=== PATIENT | male | born 1950 | race Caucasian/White ===

== ENCOUNTER 2017-01-02 07:44 | Observation (INO) | payer MEDICAID ==
--- NOTE | 2017-01-02 08:51 | EDM.PDOC ---
ED HPI GENERAL MEDICAL PROBLEM - General Chief Complaint: Abdominal Pain Stated Complaint: PAIN IN LEFT SIDE OF BELLY AREA Time Seen by Provider: 01/02/17 08:30 Source of Information: Reports: Patient, Family History Limitations: Reports: No Limitations - History of Present Illness INITIAL COMMENTS - FREE TEXT/NARRATIVE: 66-year-old male who has left-sided abdominal pain for the past 12 hours. He was unable to lay on his left side last night when he was trying to sleep. It seems worse when suppositional, such as partially inclined in a chair. No fevers or chills, no nausea or vomiting, had a normal bowel movement this morning. He does feel somewhat distended. He has a dental extraction later this afternoon and wants to make sure each healthy enough. Onset: Gradual (Over the last 12 hours) Location: Reports: Abdomen Severity: Moderate Worsens with: Reports: Other (Leaning back or laying on his left side) Abdomen Pain Score (Numeric/FACES): 2 - Related Data Allergies Allergy/AdvReac Type Severity Reaction Status Date / Time clarithromycin [From Biaxin] Allergy Rash Verified 01/02/17 08:03 doxycycline Allergy Rash Verified 01/02/17 08:03 levofloxacin [From Levaquin] Allergy Rash Verified 01/02/17 08:03 Home Meds: Home Meds Calcium Carbonate/Vitamin D3 [Calcium 600 + D3 Softgel] 1 each PO DAILY [History] Cetirizine HCl 10 mg PO DAILY 06/19/16 [History] Fenofibrate Nanocrystallized [Tricor] 145 mg PO DAILY 06/19/16 [History] Fish Oil/[place]-3 Fatty Acids [Fish Oil] 2 each PO BID 06/19/16 [History] Folic Acid 0.8 mg PO DAILY 06/19/16 [History] Guaifenesin/Pseudoephedrne HCl [Mucinex D ER Tablet] 1 each PO DAILY 06/19/16 [ History] Multivitamin with Minerals [Multiple Vitamin] 1 tab PO DAILY 06/19/16 [History] Omeprazole 40 mg PO DAILY 06/19/16 [History] Oxymetazoline [Afrin Original 0.05% Nasal [place]] 1 applic RAIZA DAILY PRN [History] Triamcinolone Acetonide [Nasacort] 2 ampule NS DAILY 06/19/16 [History] Warfarin [Coumadin] 6 mg PO DAILY 06/19/16 [History] Past Medical History HEENT History: Reports: Cataract, Hard of Hearing, Impaired Vision, Other (See Below) Other HEENT History: Radiation therapy on sinus (forehead) Cardiovascular History: Reports: Heart Murmur, High Cholesterol Respiratory History: Reports: Sleep Apnea Gastrointestinal History: Reports: GERD, Hemorrhoids Musculoskeletal History: Reports: Fracture, Osteoarthritis Psychiatric History: Reports: Depression, Mood Swings Endocrine/Metabolic History: Reports: Obesity/BMI 30+ Oncologic (Cancer) History: Reports: Basal Cell Carcinoma Dermatologic History: Reports: Eczema - Infectious Disease History Infectious Disease History: Reports: Chicken Pox - Past Surgical History HEENT Surgical History: Reports: Cataract Surgery, Naso-Sinus Surgery, Tonsillectomy Cardiovascular Surgical History: Reports: Valve Replacement GI Surgical History: Reports: Colonoscopy, EGD, Hernia, Inguinal Endocrine Surgical History: Reports: None Musculoskeletal Surgical History: Reports: Carpal Tunnel, Shoulder Surgery, Other (See Below) Dermatological Surgical History: Reports: Skin Biopsy Social & Family History - Family History Cardiac: Reports: [place] Oncologic: Reports: Skin - Tobacco Use Smoking Status *Q: Former Smoker Years of Tobacco use: 8 Packs/Tins Daily: 1 Used Tobacco, but Quit: Yes Month Tobacco Last Used: 1986 Tobacco Use Comment: quit jun 06 1987 Second Hand Smoke Exposure: No - Caffeine Use Caffeine Use: Reports: Coffee Caffeine Use Comment: 5 cups a day - Alcohol Use Days Per Week of Alcohol Use: 2 Number of Drinks Per Day: 1 Total Drinks Per Week: 2 - Recreational Drug Use Recreational Drug Use: No ED ROS GENERAL - Review of Systems Review Of Systems: See Below Constitutional: Denies: Fever, Chills HEENT: Reports: Other (Recent dental abscess, scheduled for dental extraction later today) Respiratory: Denies: Shortness of Breath Cardiovascular: Denies: Chest Pain GI/Abdominal: Reports: Abdominal Pain, Distension (Feels his abdomen is somewhat bloated). Denies: Nausea, Vomiting Skin: Reports: No Symptoms Neurological: Reports: Other (Has been getting lightheaded with standing over the past several weeks) Psychiatric: Reports: No Symptoms ED EXAM, GI/ABD - Physical Exam Exam: See Below Exam Limited By: No Limitations General Appearance: Alert, No Apparent Distress Head: Atraumatic Neck: Normal Inspection Respiratory/Chest: No Respiratory Distress Cardiovascular: Regular Rate, Rhythm GI/Abdominal: Soft, Tenderness (Does react was some tenderness to palpation over the left lateral abdomen and left lower quadrant, no guarding or rebound) Neurological: Alert, Oriented Psychiatric: Normal Affect, Normal Mood Skin Exam: Warm, Dry Course - Vital Signs Last Recorded V/S: Last Vital Signs Temp 99.7 F 01/02/17 14:10 Pulse 65 01/02/17 14:10 Resp 16 01/02/17 14:10 BP 119/81 01/02/17 14:10 Pulse Ox 98 01/02/17 14:10 - Orders/Labs/Meds Orders: Active Orders 24 hr Category Date Time Status Lactated Ringers [Ringers, Lactated] 1,000 ml Med 01/02/17 10:00 Active IV ASDIRECTED Medication Orders Lactated Ringer's (Ringers, Lactated) 1,000 mls @ 500 mls/hr IV ASDIRECTED [facility]GU[facility] Last Admin: 01/02/17 10:21 Dose: 500 mls/hr Dextrose/Sodium Chloride (Dextrose 5%-Normal Saline) 1,000 mls @ 200 mls/hr IV ASDIRECTED [facility] Last Admin: 01/02/17 12:56 Dose: 200 mls/hr Warfarin Sodium (Coumadin) 6 mg PO DAILY@1300 [facility] Labs: Laboratory Tests 01/02/17 01/02/17 01/02/17 Range/Units 08:53 08:53 08:53 WBC 6.3 (4.5-11.0) K/uL RBC 5.19 (4.30-5.90) M/uL Hgb 15.0 (12.0-15.0) g/dL Hct 45.3 (40.0-54.0) % MCV 87 (80-98) fL MCH 29 (27-31) pg MCHC 33 (32-36) % Plt Count 233 (150-400) K/uL Neut % (Auto) 74 H (36-66) % Lymph % (Auto) 14 L (24-44) % [place] % (Auto) 12 H (2-6) % Eos % (Auto) 1 L (2-4) % Baso % (Auto) 0 (0-1) % PT 25.2 H (9.5-12.0) sec INR 2.32 H (0.80-1.20) Sodium 142 (140-148) mmol/L Potassium 4.3 (3.6-5.2) mmol/L Chloride 107 (100-108) mmol/L Carbon Dioxide 27 (21-32) mmol/L Anion Gap 8.2 (5.0-14.0) mmol/L BUN 17 (7-18) mg/dL Creatinine 1.1 (0.8-1.3) mg/dL Est Cr Clr Drug Dosing 83.29 mL/min Estimated GFR (MDRD) > 60 (>60) Glucose 115 H (74-106) mg/dL Calcium 8.9 (8.5-10.1) mg/dL Total Bilirubin 0.7 (0.2-1.0) mg/dL AST 38 H (15-37) U/L ALT 52 (12-78) U/L Alkaline Phosphatase 40 L (46-116) U/L Total Protein 7.3 (6.4-8.2) g/dL Albumin 4.0 (3.4-5.0) g/dL Globulin 3.3 (2.3-3.5) g/dL Albumin/Globulin Ratio 1.2 (1.2-2.2) Lipase 2148 H (73-393) U/L Meds: Medications Generic Name Dose Route Start Last Admin Trade Name Freq PRN Reason Stop Dose Admin Lactated Ringer's 1,000 mls @ 500 mls/hr 01/02/17 10:00 01/02/17 10:21 Ringers, Lactated IV 500 mls/hr ASDIRECTED NGUYEN Administration Dextrose/Sodium Chloride 1,000 mls @ 200 mls/hr 01/02/17 13:00 01/02/17 12:56 Dextrose 5%-Normal Saline IV 200 mls/hr ASDIRECTED NGUYEN Administration Warfarin Sodium 6 mg 01/03/17 13:00 Coumadin PO DAILY@1300 NGUYEN Discontinued Medications Generic Name Dose Route Start Last Admin Trade Name Freq PRN Reason Stop Dose Admin Calcium Carbonate 1 tab 01/03/17 09:00 Caltrate 600+D 1500 Mg-400 Units PO DAILY NGUYEN Cetirizine HCl 10 mg 01/03/17 09:00 Zyrtec PO DAILY NGUYEN Fluticasone Propionate 0 gm 01/03/17 09:00 Flonase NASBOTH DAILY NGUYEN Oxymetazoline HCl ml 01/02/17 12:24 Afrin Original 0.05% Nasal [place] RAIZA DAILY PRN Allergies - Re-Assessments/Exams Free Text/Narrative Re-Assessment/Exam: 01/02/17 08:50 He needs a pro time preoperatively, that was ordered along with a CBC CMP and lipase. We will have to CT his abdomen to rule out diverticulitis or partial bowel obstruction prior to his surgery. 01/02/17 09:51 Lipase returned over 1999, CT confirms pancreatitis. The rest of his labs are actually reassuring, his pro time is 2.3. An IV of lactated Ringer's was initiated at 500 mL an hour, and Dr. Hanson his primary provider was contacted and will come to admit the patient. His oral surgery will have to be postponed. Departure - Departure Time of Disposition: 13:47 Disposition: Admitted As Inpatient 68 Condition: fair Clinical Impression: Pancreatitis Qualifiers: Chronicity: acute Pancreatitis type: idiopathic Acute pancreatitis complication : no infection or necrosis Qualified Code(s): K85.00 - Idiopathic acute pancreatitis without necrosis or infection Abdominal pain Qualifiers: Abdominal location: left upper quadrant Qualified Code(s): R10.12 - Left upper quadrant pain - Discharge Information - My Orders Last 24 Hours: My Active Orders 01/02/17 10:00 Lactated Ringers [Ringers, Lactated] 1,000 ml IV ASDIRECTED - Assessment/Plan Last 24 Hours: My Active Orders 01/02/17 10:00 Lactated Ringers [Ringers, Lactated] 1,000 ml IV ASDIRECTED
--- NOTE | 2017-01-02 09:32 | CT ---
CT abdomen and pelvis. Total DLP 1219. Findings: Right lung is clear. Minimal streaky density left lung base favor atelectasis or scarring. Fatty infiltration of the liver. Gallstones. Bilateral adrenal glands within normal limits. Spleen within normal limits. Terminal ileum within normal limits. Appendix within normal limits. The pancre atic tail demonstrates mild haziness about it. Additionally there is some mild free fluid just below it. Atherosclerotic nonaneurysmal aorta. No hydronephrosis. No dilated loops of small bowel. Pars d efects at L5 vertebral body. Impression: 1. Fluid about the pancreas with mild haziness about the pancreatic tail. Findings suggestive of acu te pancreatitis. 2. Cholelithiasis.
[2017-01-02] MEDS ORDERED: Lactated Ringers 1,000 ML IV SCH (10:00)
--- NOTE | 2017-01-02 12:07 | PCM.HP ---
H&P History of Present Illness - General Date of Service: 01/02/17 Admit Problem/Dx: Admission Diagnosis/Problem Admission Diagnosis/Problem Pancreatitis Source of Information: Patient - History of Present Illness Initial Comments - Free Text/Narative: cynthia has had fatigue for 10 days and mild abd. pain. Yesterday had abd pain on the left side and became severe this AM 7/10. Pain was sharp and dull and cramping. Pain worse when bending over. No change in bowel habits and stool dark in color yesterday. Normal color this morning. He has had a tooth abscess and was to have it extracted today. He is on Coumadin because of a heart valve replacement. Location: Reports: Abdomen Improves with: Reports: Rest Abdomen Pain Score (Numeric/FACES): 2 - Related Data Allergies/Adverse Reactions: Allergies Allergy/AdvReac Type Severity Reaction Status Date / Time clarithromycin [From Biaxin] Allergy Rash Verified 01/02/17 08:03 doxycycline Allergy Rash Verified 01/02/17 08:03 levofloxacin [From Levaquin] Allergy Rash Verified 01/02/17 08:03 Home Medications: Home Meds Calcium Carbonate/Vitamin D3 [Calcium 600 + D3 Softgel] 1 each PO DAILY [History] Cetirizine HCl 10 mg PO DAILY 06/19/16 [History] Fenofibrate Nanocrystallized [Tricor] 145 mg PO DAILY 06/19/16 [History] Fish Oil/[place]-3 Fatty Acids [Fish Oil] 2 each PO BID 06/19/16 [History] Folic Acid 0.8 mg PO DAILY 06/19/16 [History] Guaifenesin/Pseudoephedrne HCl [Mucinex D ER Tablet] 1 each PO DAILY 06/19/16 [ History] Multivitamin with Minerals [Multiple Vitamin] 1 tab PO DAILY 06/19/16 [History] Omeprazole 40 mg PO DAILY 06/19/16 [History] Oxymetazoline [Afrin Original 0.05% Nasal [place]] 1 applic RAIZA DAILY PRN [History] Triamcinolone Acetonide [Nasacort] 2 ampule NS DAILY 06/19/16 [History] Warfarin [Coumadin] 6 mg PO DAILY 06/19/16 [History] Past Medical History HEENT History: Reports: Cataract, Hard of Hearing, Impaired Vision, Other (See Below) Other HEENT History: Radiation therapy on sinus (forehead) Cardiovascular History: Reports: Heart Murmur, High Cholesterol Respiratory History: Reports: Sleep Apnea Gastrointestinal History: Reports: GERD, Hemorrhoids Musculoskeletal History: Reports: Fracture, Osteoarthritis Psychiatric History: Reports: Depression, Mood Swings Endocrine/Metabolic History: Reports: Obesity/BMI 30+ Oncologic (Cancer) History: Reports: Basal Cell Carcinoma Dermatologic History: Reports: Eczema - Infectious Disease History Infectious Disease History: Reports: Chicken Pox - Past Surgical History HEENT Surgical History: Reports: Cataract Surgery, Naso-Sinus Surgery, Tonsillectomy Cardiovascular Surgical History: Reports: Valve Replacement GI Surgical History: Reports: Colonoscopy, EGD, Hernia, Inguinal Endocrine Surgical History: Reports: None Musculoskeletal Surgical History: Reports: Carpal Tunnel, Shoulder Surgery, Other (See Below) Dermatological Surgical History: Reports: Skin Biopsy Social & Family History - Family History Cardiac: Reports: [place] Oncologic: Reports: Skin - Tobacco Use Smoking Status *Q: Former Smoker Years of Tobacco use: 8 Packs/Tins Daily: 1 Used Tobacco, but Quit: Yes Tobacco Last Used: 1986 Tobacco Use Comment: quit jun 06 1987 Second Hand Smoke Exposure: No - Caffeine Use Caffeine Use: Reports: Coffee Caffeine Use Comment: 5 cups a day - Alcohol Use Days Per Week of Alcohol Use: 2 Number of Drinks Per Day: 1 Total Drinks Per Week: 2 - Recreational Drug Use Recreational Drug Use: No H&P Review of Systems - Review of Systems: Review Of Systems: See Below General: Reports: Weakness HEENT: Reports: No Symptoms Pulmonary: Reports: Shortness of Breath Gastrointestinal: Reports: Abdominal Pain Genitourinary: Reports: No Symptoms Musculoskeletal: Reports: No Symptoms Skin: Reports: No Symptoms Psychiatric: Reports: No Symptoms Neurological: Reports: No Symptoms Hematologic/Lymphatic: Reports: No Symptoms Immunologic: Reports: No Symptoms Exam - Exam Exam: See Below - Vital Signs Vital Signs: Last Vital Signs Temp 98.8 F 01/02/17 11:22 Pulse 67 01/02/17 10:52 Resp 18 01/02/17 11:22 BP 138/89 01/02/17 11:22 Pulse Ox 93 L 01/02/17 11:22 Weight: 268 lb 1.314 oz - Exam General: Alert, Oriented, 4 HEENT: PERRLA, Hearing Intact, Mucosa Moist & [place], Nares Patent, Normal Nasal Septum, Posterior Pharynx Clear, Conjunctiva Clear, EOMI, EACs Clear, TMs Clear Neck: Supple, Trachea Midline, 2 Lungs: Clear to Auscultation, Normal Respiratory Effort Cardiovascular: Regular Rate, Regular Rhythm Abdomen: Normal Bowel Sounds, Soft, Tenderness Back Exam: Normal Inspection, Full Range of Motion, NT Peripheral Pulses: 1+: Radial (L), Radial (R) Skin: Warm, Dry, Intact Neuro Extensive - Motor, Sensory, Reflexes: CN II-XII Intact, Normal Gait, Normal Reflexes DTR: 1+: Patella (L), Patella (R) Psychiatric: Alert, Normal Affect, Normal Mood - Patient Data Lab Results last 24 hrs: Laboratory Results - last 24 hr 01/02/17 01/02/17 01/02/17 Range/Units 08:53 08:53 08:53 WBC 6.3 (4.5-11.0) K/uL RBC 5.19 (4.30-5.90) M/uL Hgb 15.0 (12.0-15.0) g/dL Hct 45.3 (40.0-54.0) % MCV 87 (80-98) fL MCH 29 (27-31) pg MCHC 33 (32-36) % Plt Count 233 (150-400) K/uL Neut % (Auto) 74 H (36-66) % Lymph % (Auto) 14 L (24-44) % [place] % (Auto) 12 H (2-6) % Eos % (Auto) 1 L (2-4) % Baso % (Auto) 0 (0-1) % PT 25.2 H (9.5-12.0) sec INR 2.32 H (0.80-1.20) Sodium 142 (140-148) mmol/L Potassium 4.3 (3.6-5.2) mmol/L Chloride 107 (100-108) mmol/L Carbon Dioxide 27 (21-32) mmol/L Anion Gap 8.2 (5.0-14.0) mmol/L BUN 17 (7-18) mg/dL Creatinine 1.1 (0.8-1.3) mg/dL Est Cr Clr Drug Dosing 83.29 mL/min Estimated GFR (MDRD) > 60 (>60) Glucose 115 H (74-106) mg/dL Calcium 8.9 (8.5-10.1) mg/dL Total Bilirubin 0.7 (0.2-1.0) mg/dL AST 38 H (15-37) U/L ALT 52 (12-78) U/L Alkaline Phosphatase 40 L (46-116) U/L Total Protein 7.3 (6.4-8.2) g/dL Albumin 4.0 (3.4-5.0) g/dL Globulin 3.3 (2.3-3.5) g/dL Albumin/Globulin Ratio 1.2 (1.2-2.2) Lipase 2148 H (73-393) U/L Result Diagrams: 01/02/17 08:53 01/02/17 08:53 *Q Meaningful Use (ADM) - VTE *Q VTE Criteria *Q: - Stroke *Q Stroke Criteria *Q: - AMI *Q AMI Criteria *Q: Problem List Initiated/Reviewed/Updated: Yes Orders Last 24hrs: Active Orders 24 hr Category Date Time Status Patient Status Manage Transfer [TRANSFER] Routine ADT 01/02/17 11:12 Active Lactated Ringers [Ringers, Lactated] 1,000 ml Med 01/02/17 10:00 Active IV ASDIRECTED Medication Orders Lactated Ringer's (Ringers, Lactated) 1,000 mls @ 500 mls/hr IV ASDIRECTED [facility] Last Admin: 01/02/17 10:21 Dose: 500 mls/hr Assessment/Plan Comment:: Assessment/Plan: #1. Pancreatitis. Lipase is elevated 2148. CT showed Mild haziness at the pancreatic tail and also cholelithiasis. #2. Aortic and mitral value replacement. On Coumadin. will continue with 6 mg daily. Goal 2.5-3.5 #3. HLD.
[2017-01-02] MEDS ORDERED: Oxymetazoline 0.05% Nasal Spray 15 ML Bottle NAS PRN (12:24)
[2017-01-02] MEDS: Dextrose 5%-0.9% NaCl 1,000 ML IV SCH ×3 (12:56→23:19)
[2017-01-02] MEDS ORDERED: WARFARIN 3 MG PO SCH (16:00)
[2017-01-03] MEDS: Dextrose 5%-0.9% NaCl 1,000 ML IV SCH ×4 (04:26→19:38)
[2017-01-03] MEDS ORDERED: Cetirizine 10 MG Tab PO SCH (09:00)
[2017-01-03] MEDS ORDERED: Fluticasone Propionate Nasal Spray 16 GM Bottle NASBOTH SCH (09:00)
[2017-01-03] MEDS ORDERED: Calcium Carbonate/Vitamin D3 1500 MG-400 Units Tab PO SCH (09:00)
[2017-01-03] MEDS: Patient's Own Medication 1 Each PO SCH (13:56)
--- NOTE | 2017-01-03 17:22 | PCM.PN ---
- General Info Date of Service: 01/03/17 Functional Status: Reports: pain controlled - Review of Systems General: Reports: No Symptoms HEENT: Reports: no symptoms Pulmonary: Reports: no symptoms Cardiovascular: Reports: No Symptoms Gastrointestinal: Reports: No symptoms Genitourinary: Reports: no symptoms Musculoskeletal: Reports: no symptoms Skin: Reports: no symptoms Neurological: Reports: No Symptoms Psychiatric: Reports: no symptoms - Patient Data Vitals - most recent: Last Vital Signs Temp 99.3 F 01/03/17 15:17 Pulse 67 01/03/17 15:17 Resp 18 01/03/17 15:17 BP 119/80 01/03/17 15:17 Pulse Ox 98 01/03/17 15:17 Weight - most recent: 263 lb I&O - last 24 hours: Intake & Output 01/03/17 01/03/17 01/03/17 06:59 14:59 22:59 Output Total 975 Balance -975 Lab Results last 24 hrs: Laboratory Results - last 24 hr 01/02/17 01/02/17 01/02/17 Range/Units 18:00 23:13 23:45 Lipase 1499 H 899 H (73-393) U/L Urine Color Yellow Urine Appearance Clear Urine pH 8.0 (4.5-8.0) Ur Specific [place] 1.010 (1.008-1.030) Urine Protein Negative (NEGATIVE) mg/dL Urine Glucose (UA) Normal (NEGATIVE) mg/dL Urine Ketones Negative (NEGATIVE) mg/dL Urine Occult Blood Negative (NEGATIVE) Urine Nitrite Negative (NEGAITVE) Urine Bilirubin Negative (NEGATIVE) Urine Urobilinogen Normal (NORMAL) mg/dL Ur Leukocyte Esterase Negative (NEGATIVE) Urine RBC 0-5 (0-5) Urine WBC Not seen (0-5) Ur Epithelial Cells Not seen Amorphous Sediment Rare Urine Bacteria Not seen Urine Mucus Not seen Med Orders - Current: Current Medications Dextrose/Sodium Chloride (Dextrose 5%-Normal Saline) 1,000 mls @ 200 mls/hr IV ASDIRECTED [facility] Last Admin: 01/03/17 14:37 Dose: 200 mls/hr Patient Own Medication (Ptom) 0 each PO DAILY@1300 [facility] Last Admin: 01/03/17 13:56 Dose: 1 each Discontinued Medications Calcium Carbonate (Caltrate 600+D 1500 Mg-400 Units) 1 tab PO DAILY [facility] Cetirizine HCl (Zyrtec) 10 mg PO DAILY [facility] Fluticasone Propionate (Flonase) 0 gm NASBOTH DAILY [facility] Lactated Ringer's (Ringers, Lactated) 1,000 mls @ 500 mls/hr IV ASDIRECTED [facility] Last Admin: 01/02/17 10:21 Dose: 500 mls/hr Oxymetazoline HCl (Afrin Original 0.05% Nasal [place]) ml RAIZA DAILY PRN PRN Reason: Allergies Warfarin Sodium (Coumadin) 6 mg PO DAILY@1300 [facility] Last Admin: 01/02/17 16:34 Dose: 6 mg - Exam General: alert, oriented Neck: supple Lungs: Clear to auscultation, Normal respiratory effort Cardiovascular: Regular Rate, Regular Rhythm Abdomen: tenderness Back Exam: Normal Inspection, Full Range of Motion Extremities: no edema Peripheral Pulses: 1+: Radial (L), Radial (R) - Problem List Review Problem List Initiated/Reviewed/Updated: Yes - My Orders Last 24 Hours: My Active Orders 01/02/17 22:14 Blood Culture x2 Reflex Set [OM.PC] Urgent 01/02/17 23:13 CULTURE URINE [RM] Routine 01/02/17 23:30 CULTURE BLOOD [BC] Urgent 01/02/17 23:45 CULTURE BLOOD [BC] Urgent 01/03/17 13:00 Patient's Own Medication [Ptom] 0 each PO DAILY@1300 01/04/17 05:11 LIPASE [CHEM] Routine - Plan Plan:: Assessment/Plan: #1. Pancreatitis. Lipase is elevated Improved but still elevated. CT showed Mild haziness at the pancreatic tail and also cholelithiasis. Check Lipase tomorrow. #2. Aortic and mitral value replacement. On Coumadin. will continue with 6 mg daily. Goal 2.5-3.5 #3. HLD.
[2017-01-04] MEDS: Dextrose 5%-0.9% NaCl 1,000 ML IV SCH ×2 (00:37→05:10)
[2017-01-04 07:58] VITALS: BP 128/90
--- NOTE | 2017-01-04 08:56 | PCM.PN ---
- General Info Date of Service: 01/04/17 Functional Status: Reports: pain controlled - Review of Systems General: Reports: No Symptoms HEENT: Reports: no symptoms Pulmonary: Reports: no symptoms Cardiovascular: Reports: No Symptoms Gastrointestinal: Reports: No symptoms Genitourinary: Reports: no symptoms Musculoskeletal: Reports: no symptoms Skin: Reports: no symptoms Neurological: Reports: No Symptoms Psychiatric: Reports: no symptoms - Patient Data Vitals - most recent: Last Vital Signs Temp 96.2 F 01/04/17 07:57 Pulse 81 01/04/17 07:57 Resp 16 01/04/17 07:57 BP 128/90 01/04/17 07:57 Pulse Ox 96 01/04/17 07:57 Weight - most recent: 263 lb I&O - last 24 hours: Intake & Output 01/03/17 01/04/17 01/04/17 22:59 06:59 14:59 Intake Total 2399 2264 561 Output Total 550 1800 Balance 1849 464 561 Lab Results last 24 hrs: Laboratory Results - last 24 hr 01/04/17 01/04/17 Range/Units 05:18 08:03 PT 28.5 H (9.5-12.0) sec INR 2.61 H (0.80-1.20) Lipase 222 (73-393) U/L Cristiano Results last 24 hrs: Microbiology 01/02/17 23:13 Urine Culture - Preliminary Urine, Clean Catch NO GROWTH AFTER 1 DAY 01/02/17 23:45 Aerobic Blood Culture - Preliminary Blood - Arm, Left NO GROWTH AFTER 1 DAY Anaerobic Blood Culture - Preliminary NO GROWTH AFTER 1 DAY 01/02/17 23:30 Aerobic Blood Culture - Preliminary Blood - Arm, Right NO GROWTH AFTER 1 DAY Anaerobic Blood Culture - Preliminary NO GROWTH AFTER 1 DAY Med Orders - Current: Current Medications Dextrose/Sodium Chloride (Dextrose 5%-Normal Saline) 1,000 mls @ 200 mls/hr IV ASDIRECTED [facility] Last Admin: 01/04/17 05:10 Dose: 200 mls/hr Patient Own Medication (Ptom) 0 each PO DAILY@1300 [facility] Last Admin: 01/03/17 13:56 Dose: 1 each Discontinued Medications Calcium Carbonate (Caltrate 600+D 1500 Mg-400 Units) 1 tab PO DAILY [facility] Cetirizine HCl (Zyrtec) 10 mg PO DAILY [facility] Fluticasone Propionate (Flonase) 0 gm NASBOTH DAILY [facility] Lactated Ringer's (Ringers, Lactated) 1,000 mls @ 500 mls/hr IV ASDIRECTED [facility] Last Admin: 01/02/17 10:21 Dose: 500 mls/hr Oxymetazoline HCl (Afrin Original 0.05% Nasal [place]) ml RAIZA DAILY PRN PRN Reason: Allergies Warfarin Sodium (Coumadin) 6 mg PO DAILY@1300 [facility] Last Admin: 01/02/17 16:34 Dose: 6 mg - Exam General: alert, oriented HEENT: Pupils equal, Pupils reactive, EOMI, Mucous membr. moist/pink Neck: supple Lungs: Clear to auscultation, Normal respiratory effort Cardiovascular: Regular Rate, Regular Rhythm Abdomen: bowel sounds present, soft, no tenderness, no distension (Male) Exam: No Hernia, Normal Inspection, Normal Prostate, Circumcised Extremities: no edema Peripheral Pulses: 1+: Radial (L), Radial (R) Skin: warm, dry, intact Psy/Mental Status: alert, normal affect, normal mood - Problem List Review Problem List Initiated/Reviewed/Updated: Yes - My Orders Last 24 Hours: My Active Orders 01/03/17 13:00 Patient's Own Medication [Ptom] 0 each PO DAILY@1300 01/04/17 08:02 Peripheral IV Discontinue [OM.PC] Routine 01/04/17 08:42 Ready for Discharge [RC] PER UNIT ROUTINE 01/04/17 Lunch Regular Diet [DIET] - Plan Plan:: Assessment/Plan: #1. Pancreatitis. Lipase is normal today and will discharge home. #2. Aortic and mitral value replacement. On Coumadin. will continue with 6 mg daily. Goal 2.5-3.5 #3. HLD.
--- NOTE | 2017-01-04 08:56 | PCM.DCSUM1 ---
Discharge Summary - Hospital Course Free Text/Narrative:: cynthia has had fatigue for 10 days and mild abd. pain. When admitted abd pain on the left side and became severe with a pain level of 7/10. Pain was sharp and dull and cramping. Pain worse when bending over. No change in bowel habits and stool dark in color. He has had a tooth abscess and was to have it extracted the day of admission. He is on Coumadin because of a heart valve replacement. - Discharge Data Discharge Date: 01/04/17 Discharge Disposition: Home, Self-Care 01 Condition: Good - Patient Summary/Data Hospital Course: He was admitted to the hospital having abdominal pain. He was found to have high Lipase and and placed in the hospital NPO the Lipase was 2100 upon admission and 222 at discharge. His abdominal pain resolved. He is being discharged home to take no Alcohol and limit high caloric foods. CT showed pancreatitis at the tail of the pancreas. - Patient Instructions Diet: Heart Healthy Diet Activity: As Tolerated - Discharge Plan Home Medications: Home Meds Calcium Carbonate/Vitamin D3 [Calcium 600 + Vit D 400 Softgl] 1 each PO DAILY [History] Cetirizine HCl 10 mg PO DAILY 06/19/16 [History] Fenofibrate Nanocrystallized [Tricor] 145 mg PO DAILY 06/19/16 [History] Fish Oil/[place]-3 Fatty Acids [Fish Oil 1,000 MG] 2 each PO BID 06/19/16 [History ] Folic Acid 0.8 mg PO DAILY 06/19/16 [History] Guaifenesin/Pseudoephedrne HCl [Mucinex D ER 1,200-120 mg Tab] 1 each PO DAILY 06/19/16 [History] Multivitamin with Minerals [Multiple Vitamin] 1 tab PO DAILY 06/19/16 [History] Omeprazole 40 mg PO DAILY 06/19/16 [History] Oxymetazoline [Afrin Original 0.05% Nasal [place]] 1 applic RAIZA DAILY PRN [History] Triamcinolone Acetonide [Nasacort] 2 ampule NS DAILY 06/19/16 [History] Warfarin [Coumadin] 6 mg PO DAILY 06/19/16 [History] Forms: ED Department Discharge Referrals: Yomi Hanson Sr, MD [Primary Care Provider] - - Discharge Summary/Plan Comment DC Time >30 min.: Yes - Patient Data Vitals - Most Recent: Last Vital Signs Temp 96.2 F 01/04/17 07:57 Pulse 81 01/04/17 07:57 Resp 16 01/04/17 07:57 BP 128/90 01/04/17 07:57 Pulse Ox 96 01/04/17 07:57 Weight - Most Recent: 263 lb I&O - Last 24 hours: Intake & Output 01/03/17 01/04/17 01/04/17 22:59 06:59 14:59 Intake Total 2399 2264 561 Output Total 550 1800 Balance 1849 464 561 Lab Results - Last 24 hrs: Laboratory Results - last 24 hr 01/04/17 01/04/17 Range/Units 05:18 08:03 PT 28.5 H (9.5-12.0) sec INR 2.61 H (0.80-1.20) Lipase 222 (73-393) U/L JENNIFER Results - Last 24 hrs: Microbiology 01/02/17 23:13 Urine Culture - Preliminary Urine, Clean Catch NO GROWTH AFTER 1 DAY 01/02/17 23:45 Aerobic Blood Culture - Preliminary Blood - Arm, Left NO GROWTH AFTER 1 DAY Anaerobic Blood Culture - Preliminary NO GROWTH AFTER 1 DAY 01/02/17 23:30 Aerobic Blood Culture - Preliminary Blood - Arm, Right NO GROWTH AFTER 1 DAY Anaerobic Blood Culture - Preliminary NO GROWTH AFTER 1 DAY Med Orders - Current: Current Medications Dextrose/Sodium Chloride (Dextrose 5%-Normal Saline) 1,000 mls @ 200 mls/hr IV ASDIRECTED [facility] Last Admin: 01/04/17 05:10 Dose: 200 mls/hr Patient Own Medication (Ptom) 0 each PO DAILY@1300 NGUYEN Last Admin: 01/03/17 13:56 Dose: 1 each Discontinued Medications Calcium Carbonate (Caltrate 600+D 1500 Mg-400 Units) 1 tab PO DAILY [facility] Cetirizine HCl (Zyrtec) 10 mg PO DAILY [facility] Fluticasone Propionate (Flonase) 0 gm NASBOTH DAILY [facility] Lactated Ringer's (Ringers, Lactated) 1,000 mls @ 500 mls/hr IV ASDIRECTED [facility] Last Admin: 01/02/17 10:21 Dose: 500 mls/hr Oxymetazoline HCl (Afrin Original 0.05% Nasal [place]) ml RAIZA DAILY PRN PRN Reason: Allergies Warfarin Sodium (Coumadin) 6 mg PO DAILY@1300 NGUYEN Last Admin: 01/02/17 16:34 Dose: 6 mg *Q Meaningful Use (DIS) - VTE *Q VTE Criteria *Q: - Stroke *Q Stroke Criteria *Q: - AMI *Q AMI Criteria *Q:
[2017-01-04] MEDS: Patient's Own Medication 1 Each PO SCH (13:39)
== END 2017-01-04 13:39 | disposition home or self-care (01) ==
LOC: JP.ED 07:44 → UNDOADMOB 11:12 → JP.MS 11:12 → UNDODISOB 01-04 13:39
PROVIDERS: ADMIT Internal Medicine; ATTEND Internal Medicine
DX: K85.00 Idiopathic acute pancreatitis without necrosis or infection (principal); E78.00 Pure hypercholesterolemia, unspecified; K21.9 Gastro-esophageal reflux disease without esophagitis; G47.30 Sleep apnea, unspecified; E66.9 Obesity, unspecified; Z68.30 Body mass index [BMI] 30.0-30.9, adult; Z88.1 Allergy status to other antibiotic agents; Z95.2 Presence of prosthetic heart valve; Z79.899 Other long term (current) drug therapy; Z98.890 Other specified postprocedural states; Z87.891 Personal history of nicotine dependence; Z79.01 Long term (current) use of anticoagulants
CPT/HCPCS: 36415; 74176; 80053; 81001; 83690; 85025; 85610; 87040; 87086; 96360; 96361; 99284; A9270; J7120; G0378

== ENCOUNTER 2018-04-24 06:31 | Day surgery (SDC) | payer MEDICARE, BC ==
[2018-04-24] MEDS ORDERED: Sodium Chloride 0.9% 1,000 ML IV SCH (07:15)
[2018-04-24] MEDS ORDERED: Midazolam 1 MG/ML 2 ML SDV ONE (07:23)
[2018-04-24] MEDS ORDERED: Propofol 200 MG/20 ML SDV ONE (07:23)
[2018-04-24] MEDS ORDERED: fentaNYL 100 MCG/2 ML SDV ONE (07:23)
[2018-04-24 09:29] VITALS: BP 119/84
--- NOTE | 2018-04-24 13:58 | PROC ---
DATE OF PROCEDURE: 04/24/2018 INDICATIONS: Fabian is a 68-year-old male comes in for a colonoscopy because of abdominal pain. He has had abdominal pain on the left side of his abdomen and concerned. The risks and benefits were explained to the patient and was taken to the OR. PROCEDURE IN DETAIL: Anesthesia was given by nurse coremaker experimental. During the procedure, we used 2 mg of Versed, 2 mL of fentanyl, and 200 mg of propofol. With a gloved finger, the rectum was examined and the prostate was a grade 3/6, symmetrical, and soft. The Olympus 180AL scope was used. It was placed in the rectum and advanced under direct vision. We got to the cecum without difficulty. Upon retraction of the tube, we noted a small polyp at 90 cm. This was biopsied. There was no bleeding noted afterwards. The remainder of the colon was unremarkable and tube was removed. The patient tolerated the procedure well. There were no diverticula noted. PREOPERATIVE DIAGNOSIS: Abdominal pain. POSTOPERATIVE DIAGNOSIS: Small polyp at 90 cm biopsy pending. Yomi Hanson MD /[id number]
== END 2018-04-24 09:26 | disposition home or self-care (01) ==
LOC: JP.SDS 06:31
PROVIDERS: ATTEND Internal Medicine
DX: R10.9 Unspecified abdominal pain (principal); D12.3 Benign neoplasm of transverse colon; Z88.1 Allergy status to other antibiotic agents
CPT/HCPCS: 45380; 88305; J2250; J2704; J3010; J7030

== ENCOUNTER 2018-12-27 20:10 | Emergency (ER) | payer MEDICARE, BC ==
--- NOTE | 2018-12-27 22:31 | EDM.PDOC ---
ED HPI GENERAL MEDICAL PROBLEM - General Chief Complaint: General Stated Complaint: ILLNESS Time Seen by Provider: 12/27/18 22:20 Source of Information: Reports: Patient, Family, RN Notes Reviewed History Limitations: Reports: No Limitations - History of Present Illness INITIAL COMMENTS - FREE TEXT/NARRATIVE: 68-year-old gentleman presents emergency department today complaint of body aches and fever as well as chills at home he's been ill for about 3 days he is worried he may have anaplasmosis - Related Data Allergies Allergy/AdvReac Type Severity Reaction Status Date / Time clarithromycin [From Biaxin] Allergy Rash Verified 12/27/18 21:51 doxycycline Allergy Rash Verified 12/27/18 21:51 levofloxacin [From Levaquin] Allergy Rash Verified 12/27/18 21:51 Home Meds: Home Meds Calcium Carbonate/Vitamin D3 [Calcium 600 + Vit D 400 Softgl] 1 each PO DAILY [History] Cetirizine HCl 10 mg PO DAILY 06/19/16 [History] Fish Oil/[place]-3 Fatty Acids [Fish Oil 1,000 MG] 2 each PO BID 06/19/16 [History ] Folic Acid 0.8 mg PO DAILY 06/19/16 [History] Guaifenesin/Pseudoephedrne HCl [Mucinex D ER 1,200-120 mg Tab] 1 each PO DAILY 06/19/16 [History] Multivitamin with Minerals [Multiple Vitamin] 1 tab PO DAILY 06/19/16 [History] Triamcinolone Acetonide [Nasacort] 2 spray NS DAILY 06/19/16 [History] Warfarin [Coumadin] 5 mg PO DAILY 06/19/16 [History] Diltiazem HCl [Dilt-Xr] 180 mg PO DAILY 04/22/18 [History] Fenofibrate Nanocrystallized [Tricor] 145 mg PO BEDTIME 04/22/18 [History] Omeprazole 20 mg PO BID 04/22/18 [History] atorvaSTATin Calcium [Atorvastatin Calcium] 20 mg PO DAILY 04/22/18 [History] Amoxicillin 2,000 mg PO ASDIRECTED PRN 04/24/18 [History] Aspirin [Halfprin] 81 mg PO DAILY 12/27/18 [History] Past Medical History HEENT History: Reports: Cataract, Hard of Hearing, Impaired Vision, Other (See Below) Other HEENT History: Radiation therapy on sinus (forehead) Cardiovascular History: Reports: Afib, Heart Murmur, Heart Valve Replacement, High Cholesterol, Hypertension Respiratory History: Reports: Sleep Apnea Gastrointestinal History: Reports: Colon Polyp, GERD, Hemorrhoids, Pancreatitis Genitourinary History: Reports: Prostate Disorder Musculoskeletal History: Reports: Fracture, Osteoarthritis Psychiatric History: Reports: Depression, Mood Swings Endocrine/Metabolic History: Reports: Obesity/BMI 30+ Hematologic History: Reports: Anticoagulation Therapy Oncologic (Cancer) History: Reports: Basal Cell Carcinoma Dermatologic History: Reports: Eczema Other Dermatologic History: basal carcanoma on face - Infectious Disease History Infectious Disease History: Reports: Chicken Pox - Past Surgical History HEENT Surgical History: Reports: Cataract Surgery, Naso-Sinus Surgery, Oral Surgery, Tonsillectomy Cardiovascular Surgical History: Reports: Valve Replacement Respiratory Surgical History: Reports: None GI Surgical History: Reports: Colonoscopy, EGD, Hernia, Inguinal, Polypectomy Endocrine Surgical History: Reports: None Musculoskeletal Surgical History: Reports: Carpal Tunnel, Shoulder Surgery, Other (See Below) Other Musculoskeletal Surgeries/Procedures:: Tendon repair left wrist Dermatological Surgical History: Reports: Skin Biopsy Social & Family History - Family History Cardiac: Reports: MD Oncologic: Reports: Skin - Tobacco Use Smoking Status *Q: Never Smoker - Caffeine Use Caffeine Use: Reports: None Caffeine Use Comment: 5 cups a day - Recreational Drug Use Recreational Drug Use: No ED ROS GENERAL - Review of Systems Review Of Systems: See Below Constitutional: Reports: Fever, Chills, Other (Body aches) HEENT: Reports: No Symptoms Respiratory: Reports: No Symptoms Cardiovascular: Reports: No Symptoms GI/Abdominal: Reports: No Symptoms : Reports: No Symptoms Musculoskeletal: Reports: Joint Pain, Muscle Pain Skin: Reports: No Symptoms ED EXAM, GENERAL - Physical Exam Exam: See Below Free Text/Narrative:: General: Male, not in any distress, alert and oriented x3 HEENT: head is atraumatic normocephalic, eyes pupils equal round reactive to light, sclera clear no conjunctivitis appreciated. Ears tympanic membranes clear and anderson landmarks and light reflex are present bilaterally canals are clear. Nose no septal deviation, nares are clear, no blood present. Mouth mucosa is moist and pink no erythema or exudate noted in soft palate, tongue is midline uvula is midline, dentition is intact. Neck: Supple no thyromegaly no tracheal deviation. Nodes: Cervical nodes subclavicular nodes nontender no palpable lymphadenopathy noted. Lungs: clear to auscultation bilaterally with symmetrical respirations, no adventitious noise appreciated. CV: Regular rate and rhythm S1 and S2 appreciated mechanical click noted with appropriate murmurs for valve replacement. Abdomen: Soft, nontender, no palpable masses or organomegaly appreciated, no distention no guarding bowel sounds are present, . Neuro: GCS 15 Course - Vital Signs Last Recorded V/S: Last Vital Signs Temp 103.2 F H 12/27/18 21:57 Pulse 84 12/27/18 23:30 Resp 20 12/27/18 21:57 BP 125/77 12/27/18 23:30 Pulse Ox 95 12/27/18 23:30 - Orders/Labs/Meds Labs: Laboratory Tests 12/27/18 12/27/18 12/27/18 Range/Units 22:40 22:40 22:40 WBC 10.7 (4.5-11.0) K/uL RBC 5.19 (4.30-5.90) M/uL Hgb 15.0 (12.0-15.0) g/dL Hct 44.9 (40.0-54.0) % MCV 87 (80-98) fL MCH 29 (27-31) pg MCHC 33 (32-36) % Plt Count 202 (150-400) K/uL Neut % (Auto) 90 H (36-66) % Lymph % (Auto) 5 L (24-44) % [place] % (Auto) 5 (2-6) % Eos % (Auto) 0 L (2-4) % Baso % (Auto) 0 (0-1) % PT 31.1 H (9.5-12.0) sec INR 3.01 H (0.80-1.20) Sodium 138 L (140-148) mmol/L Potassium 4.1 (3.6-5.2) mmol/L Chloride 103 (100-108) mmol/L Carbon Dioxide 24 (21-32) mmol/L Anion Gap 15.1 H (5.0-14.0) mmol/L BUN 16 D (7-18) mg/dL Creatinine 1.2 (0.8-1.3) mg/dL Est Cr Clr Drug Dosing 74.34 mL/min Estimated GFR (MDRD) > 60 (>60) Glucose 149 H (74-106) mg/dL Lactic Acid (0.4-2.0) mmol/L Calcium 9.3 (8.5-10.1) mg/dL Total Bilirubin 0.8 (0.2-1.0) mg/dL AST 31 (15-37) U/L ALT 43 (12-78) U/L Alkaline Phosphatase 42 L (46-116) U/L Total Protein 7.1 (6.4-8.2) g/dL Albumin 4.0 (3.4-5.0) g/dL Globulin 3.1 (2.3-3.5) g/dL Albumin/Globulin Ratio 1.3 (1.2-2.2) Lipase 193 (73-393) U/L Urine Color Urine Appearance Urine pH (4.5-8.0) Ur Specific [place] (1.008-1.030) Urine Protein (NEGATIVE) mg/dL Urine Glucose (UA) (NEGATIVE) mg/dL Urine Ketones (NEGATIVE) mg/dL Urine Occult Blood (NEGATIVE) Urine Nitrite (NEGAITVE) Urine Bilirubin (NEGATIVE) Urine Urobilinogen (NORMAL) mg/dL Ur Leukocyte Esterase (NEGATIVE) Urine RBC (0-5) Urine WBC (0-5) Ur Epithelial Cells Amorphous Sediment Urine Bacteria Urine Mucus 12/27/18 12/27/18 Range/Units 22:40 23:31 WBC (4.5-11.0) K/uL RBC (4.30-5.90) M/uL Hgb (12.0-15.0) g/dL Hct (40.0-54.0) % MCV (80-98) fL MCH (27-31) pg MCHC (32-36) % Plt Count (150-400) K/uL Neut % (Auto) (36-66) % Lymph % (Auto) (24-44) % [place] % (Auto) (2-6) % Eos % (Auto) (2-4) % Baso % (Auto) (0-1) % PT (9.5-12.0) sec INR (0.80-1.20) Sodium (140-148) mmol/L Potassium (3.6-5.2) mmol/L Chloride (100-108) mmol/L Carbon Dioxide (21-32) mmol/L Anion Gap (5.0-14.0) mmol/L BUN (7-18) mg/dL Creatinine (0.8-1.3) mg/dL Est Cr Clr Drug Dosing mL/min Estimated GFR (MDRD) (>60) Glucose (74-106) mg/dL Lactic Acid 2.0 (0.4-2.0) mmol/L Calcium (8.5-10.1) mg/dL Total Bilirubin (0.2-1.0) mg/dL AST (15-37) U/L ALT (12-78) U/L Alkaline Phosphatase (46-116) U/L Total Protein (6.4-8.2) g/dL Albumin (3.4-5.0) g/dL Globulin (2.3-3.5) g/dL Albumin/Globulin Ratio (1.2-2.2) Lipase (73-393) U/L Urine Color Yellow Urine Appearance Clear Urine pH 5.0 (4.5-8.0) Ur Specific [place] 1.015 (1.008-1.030) Urine Protein Negative (NEGATIVE) mg/dL Urine Glucose (UA) Normal (NEGATIVE) mg/dL Urine Ketones Negative (NEGATIVE) mg/dL Urine Occult Blood Negative (NEGATIVE) Urine Nitrite Negative (NEGAITVE) Urine Bilirubin Negative (NEGATIVE) Urine Urobilinogen Normal (NORMAL) mg/dL Ur Leukocyte Esterase Negative (NEGATIVE) Urine RBC 0-5 (0-5) Urine WBC 0-5 (0-5) Ur Epithelial Cells Few Amorphous Sediment Not seen Urine Bacteria Few Urine Mucus Many Departure - Departure Time of Disposition: 23:59 Disposition: Home, Self-Care 01 Condition: Fair Clinical Impression: Viral syndrome - Discharge Information Referrals: Yomi Hanson Sr, MD [Primary Care Provider] - Forms: ED Department Discharge Additional Instructions: use Tylenol as needed for fever control, Please followup with your primary care provider in 3-5 days if not better, please call return to the emergency department with worsening of symptoms. - Assessment/Plan Plan: Assessment Acuity = acute Site and laterality = viral syndrome Etiology = unclear etiology Manifestations = fever, body aches Location of injury = Home Lab values = CBC, CMP, lipase, lactic acid, urinalysis all within normal limits INR is therapeutic at 3.0 Plan He is getting use Tylenol and symptomatic care follow-up primary care 3-5 days if no improvement This note was dictated using [employer] voice recognition software please call with any questions on syntax or grammar.
[2018-12-27 23:47] VITALS: BP 125/77
== END 2018-12-28 00:06 | disposition home or self-care (01) ==
LOC: JP.ED 20:10
DX: B34.9 Viral infection, unspecified (principal); I48.91 Unspecified atrial fibrillation; K21.9 Gastro-esophageal reflux disease without esophagitis; Z79.01 Long term (current) use of anticoagulants; Z79.899 Other long term (current) drug therapy; Z88.1 Allergy status to other antibiotic agents
CPT/HCPCS: 36415; 80053; 81001; 83605; 83690; 85025; 85610; 87804; 87804-59; 99283

== ENCOUNTER 2021-05-25 06:21 | Day surgery (SDC) | payer MEDICARE, BC ==
[2021-05-25] MEDS ORDERED: Sodium Chloride 0.9% 1,000 ML IV SCH (07:00)
[2021-05-25] MEDS ORDERED: fentaNYL 100 MCG/2 ML SDV ONE (07:15)
[2021-05-25] MEDS ORDERED: Midazolam 1 MG/ML 2 ML SDV ONE (07:16)
[2021-05-25] MEDS ORDERED: Propofol 200 MG/20 ML SDV ONE (07:16)
[2021-05-25] MEDS ORDERED: ceFAZolin 1 GM Vial ONE (08:11)
[2021-05-25] MEDS ORDERED: Sodium Chloride 0.9% 10 ML ONE (08:11)
[2021-05-25 09:41] VITALS: BP 142/82; PULSE 65
--- NOTE | 2021-05-25 13:43 | PROC ---
DATE OF PROCEDURE: 05/25/2021 SURGEON: Yomi Hanson MD INDICATION: Fabian is a 71-year-old male who comes in for a screening colonoscopy. He has had a history of polyps in the past. The risks and benefits were explained to the patient and was taken to the OR. PROCEDURE IN DETAIL: Anesthesia was given by nurse cotton program technician. During the procedure, we used 100 mcg of fentanyl, 2 mg of Versed, and 150 mg of propofol. The Olympus 180L scope was used. With a gloved finger, the rectum was examined. The prostate was symmetrical and firm. No nodularity was found. The tube was placed into the rectum and advanced under direct vision. We did get to the cecum. There was a small-appearing benign polyp 3 mm in size. This was biopsied. Upon slow retraction of the tube, noted no other lesions or ulceration. No abnormality. There was fecal water noted in the descending colon. The tube was removed. The patient tolerated the procedure well. PREOPERATIVE DIAGNOSIS: History of polyps. POSTOPERATIVE DIAGNOSIS: A 3-mm benign-appearing polyp at the cecum, biopsy pending. Routine screening should be done for this gentleman. Yomi Hanson MD /[id number]
== END 2021-05-25 09:39 | disposition home or self-care (01) ==
LOC: JP.SDS 06:21
PROVIDERS: ATTEND Internal Medicine
DX: Z12.11 Encounter for screening for malignant neoplasm of colon (principal); D12.0 Benign neoplasm of cecum; E78.5 Hyperlipidemia, unspecified; I10 Essential (primary) hypertension; E66.9 Obesity, unspecified; E11.9 Type 2 diabetes mellitus without complications; Z68.31 Body mass index [BMI] 31.0-31.9, adult
CPT/HCPCS: 45380; J0690; J2250; J2704; J3010; J7030; 88305

== ENCOUNTER 2023-05-09 06:16 | Day surgery (SDC) | payer MEDICARE, BC ==
[2023-05-09] MEDS ORDERED: Sodium Chloride 0.9% 1,000 ML IV SCH (07:00)
[2023-05-09] MEDS ORDERED: Propofol 200 MG/20 ML SDV ONE ×2 (07:15→07:42)
[2023-05-09] MEDS ORDERED: fentaNYL 100 MCG/2 ML SDV ONE (07:15)
[2023-05-09 08:50] VITALS: BP 121/76; PULSE 56
[2023-05-13] MEDS ORDERED: Cetirizine 10 MG Tab PO PRN (22:45)
[2023-05-14] MEDS ORDERED: Pantoprazole 40 MG Tab.CR PO SCH (08:00)
[2023-05-14] MEDS ORDERED: Fluticasone NASAL Spray 16 GM Bottle NASBOTH SCH (09:00)
[2023-05-14] MEDS ORDERED: Warfarin 5 MG Tab PO SCH (09:00)
[2023-05-14] MEDS ORDERED: Cyanocobalamin (Vitamin B12) 1,000 MCG Tab PO SCH (09:00)
[2023-05-14] MEDS ORDERED: atorvaSTATin 20 MG Tab PO SCH (09:00)
[2023-05-14] MEDS ORDERED: Oxymetazoline 0.05% Nasal Spray 30 ML Bottle NAS SCH (09:00)
[2023-05-14] MEDS ORDERED: Diltiazem 120 MG Cap.CD PO SCH (09:00)
[2023-05-14] MEDS ORDERED: Aspirin 81 MG Tab.EC PO SCH (09:00)
[2023-05-14] MEDS ORDERED: Cholecalciferol (Vitamin D3) 25 MCG Tab PO SCH (09:00)
== END 2023-05-09 08:52 | disposition home or self-care (01) ==
LOC: JP.SDS 06:16
PROVIDERS: ATTEND Internal Medicine
DX: Z12.11 Encounter for screening for malignant neoplasm of colon (principal); D12.0 Benign neoplasm of cecum; K63.5 Polyp of colon; E78.5 Hyperlipidemia, unspecified; I10 Essential (primary) hypertension; I08.0 Rheumatic disorders of both mitral and aortic valves; R73.9 Hyperglycemia, unspecified; E66.9 Obesity, unspecified; Z88.1 Allergy status to other antibiotic agents
CPT/HCPCS: 45380; 88305; J2704; J3010; J7030